=== PATIENT | male | born 1960 | race Caucasian/White ===

== ENCOUNTER 2020-09-25 18:53 | Emergency (ER) | payer OTHER ==
[~2020-09-25] VITALS: Ht 175.3 cm; Wt 54.4 kg
[2020-09-25 19:03] VITALS: BP 134/81
--- NOTE | 2020-09-25 19:36 | NUR ---
Pt c/o back pain s/p fall yesterday. States he did not hit head during fall. States he has been very tired lately. Denies medical hx, denies taking any meds. A/Ox4, steady gait. Noted restless, pacing room. States he has been staying at a motel and has had frequent hospital stays, noted by multiple wristbands and pt states he was d/c from a hospital in [place] this morning. Pt does not remember name of hospital.
[2020-09-25 19:50] VITALS: BP 134/81
--- NOTE | 2020-09-25 19:52 | NUR ---
Patient discharged with v/s stable. Written and verbal after care instructions given and explained. Patient verbalized understanding. Ambulatory with steady gait. All questions addressed prior to discharge. Advised to follow up with PMD. Pt given resources on shelters he can stay at. Pt states he would like to sleep at hospital instead. Advised pt that he has been medically cleared and discharged by ERMD and cannot sleep in hospital. MD has stated that pt was given Rx by MD from previous hospital visit. Pt states he does not want to fill Rx. Pt states he will sit in lobby while he decides where to go next. Pt educated on chronic back pain but refused to sign d/c paper.
== END 2020-09-25 19:51 | disposition home or self-care (01) ==
LOC: MED 18:53
DX: M54.9 Dorsalgia, unspecified (principal); G89.29 Other chronic pain; Z59.0 Homelessness
CPT/HCPCS: 99281

== ENCOUNTER 2020-09-25 21:34 | Emergency (ER) | payer OTHER ==
--- NOTE | 2020-09-25 22:18 | NUR ---
LWBS [id number]
== END 2020-09-25 22:15 | disposition left against medical advice (07) ==
LOC: MED 21:34
DX: Z53.21 Procedure and treatment not carried out due to patient leaving prior to being seen by health care provider (principal)

== ENCOUNTER 2021-02-10 21:10 | Emergency (ER) | payer OTHER ==
[~2021-02-10] VITALS: Ht 157.5 cm; Wt 54.4 kg
--- NOTE | 2021-02-10 21:10 | NUR ---
PT BRITNEY HEADLEYS. TAKEN TO BED 4
[2021-02-10 21:14] VITALS: BP 125/85
[2021-02-10 21:18] VITALS: BP 125/85
--- NOTE | 2021-02-10 21:24 | NUR ---
LEFT WITHOUT BEING SEEN BY ERMD. GIVEN FOOD PACKET PRIOR TO LEAVING
--- NOTE | 2021-02-10 21:30 | NUR ---
PT BACK IN BED 4
--- NOTE | 2021-02-10 21:53 | NUR ---
60 Y/O MALE PATIENT BIBA C/O HEADACHE. PER PT, " I WAS GONNA TO A JAIL, BUT THEY DIDNT LET ME IN, SO THEY SUGGESTED TO CALL THE AMBULANCE AND I DID."DENIES N/V/D; SKIN IS PINK/WARM/DRY; AAOX4 WITH EVEN AND STEADY GAIT; LUNGS CLEAR BL; HR EVEN AND REGULAR; PT DENIES ANY FEVER, CP, SOB, OR COUGH AT THIS TIME; PATIENT STATES PAIN OF 9/10 HEADACHE AT THIS TIME; VSS; PATIENT POSITIONED FOR COMFORT; HOB ELEVATED; BEDRAILS UP X2; BED DOWN. ER MD MADE AWARE OF PT STATUS. NKA PMH: DENIES
--- NOTE | 2021-02-10 22:31 | NUR ---
Dr. Hyman examining patient.
[2021-02-10] MEDS ORDERED: IBUPROFEN 800 MG TAB PO ONE (22:45)
--- NOTE | 2021-02-11 00:30 | NUR ---
Patient discharged with v/s stable. Written and verbal after care instructions given and explained. Patient verbalized understanding. Ambulatory with steady gait. All questions addressed prior to discharge. Advised to follow up with PMD. Addendum: 02/11/21 at 0334 by [email or web address] HOMELESS RESOURCE PACKET GIVEN
== END 2021-02-11 00:30 | disposition home or self-care (01) ==
LOC: MED 21:10
DX: R51.9 Headache, unspecified (principal)
CPT/HCPCS: 99283